=== PATIENT | male | born 1945 | race Caucasian/White ===

== ENCOUNTER 2016-02-09 09:57 | Outpatient (RCR) | payer OTHER ==
[~2016-02-09 09:57] MED LIST: ATIVAN 0.50.5 MG/TAB PO; FLOMAX; FLOMAX 0.40.4 MG/CAP PO; MUCINEX 60600 MG/TA1; PREDNISONE20 MG PO; PROVENTIL0.09 MG/A1 IH; SINGULAIR 110 MG/TAB PO; ZYRTEC 10MG10 MG PO; [UNRECOGNIZED DRUG - REMARK]
== END 2016-05-09 ==
LOC: WSOH
DX: S61.412D Laceration without foreign body of left hand, subsequent encounter (principal)

== ENCOUNTER 2016-05-08 09:51 | Emergency (ER) | payer MEDICARE, OTHER ==
[~2016-05-08] VITALS: Ht 177.8 cm; Wt 86.4 kg
[2016-05-08 09:56] VITALS: BP 131/93; TEMP 99.4
[2016-05-08 10:27] VITALS: PULSE 94
== END 2016-05-08 10:27 | disposition home or self-care (01) ==
LOC: COL.ER 09:51
DX: S61.012A Laceration without foreign body of left thumb without damage to nail, initial encounter (principal); W26.8XXA Contact with other sharp object(s), not elsewhere classified, initial encounter; Y92.009 Unspecified place in unspecified non-institutional (private) residence as the place of occurrence of the external cause

== ENCOUNTER 2016-07-03 20:18 | Observation (INO) | payer MEDICARE, OTHER ==
[~2016-07-03] VITALS: Ht 177.8 cm; Wt 90.0 kg
[2016-07-03] MEDS ORDERED: ASPIRIN 32325 MG/TAB PO (20:24)
[2016-07-03 20:55] LABS: BASO # 0.1 (0.0-0.2); BASO % 0.6 % (0.0-2.0); EOS # 0.2 (0.0-0.7); GRAN % 49.1 % (42.2-75.2); HEMATOCRIT 45.3 % (42.0-52.0); HEMOGLOBIN 15.9 g/dl (13.5-18.0); LYMPH # 3.8 (1.2-3.4); LYMPH % 36.9 % (20.0-51.0); MEAN CELL VOLUME 85 fl (80.0-100.0); MEAN CORPUSCULAR HEMOGLOBIN 30 pg (27.0-31.0); MEAN CORPUSCULAR HGB CONC 35 g/dl (33.0-37.0); MEAN PLATELET VOLUME 9.7 fl (7.4-10.4); MONO # 1.1 (0.1-0.6); MONO % 10.9 % (1.7-9.3); PLATELET COUNT 228 K/mm3 (130-400); RED BLOOD COUNT 5.35 M/mm3 (4.20-5.60); REDCELL DISTRIBUTION WIDTH-CV 12.5 % (11.5-14.5); WHITE BLOOD COUNT 10.2 K/mm3 (4.8-10.8)
[2016-07-03 21:00] LABS: INR 1.1 (0.8-3.0); PROTHROMBIN TIME 11.9 SECONDS (9.7-12.8)
[2016-07-03 21:02] LABS: ADJUSTED CALCIUM 9.1 mg/dL (8.4-10.2); ALBUMIN 4.1 gm/dL (3.5-5.0); BILIRUBIN,TOTAL 0.8 mg/dL (0.0-1.0); CALCIUM 9.2 mg/dL (8.4-10.2); CREATININE, serum 0.96 mg/dL (0.66-1.25); PARTIAL THROMBOPLASTIN TIME 27.9 SECONDS (26.0-37.0); POTASSIUM 3.6 mmol/L (3.4-5.0); TOTAL PROTEIN 7.1 gm/dL (6.4-8.2)
[2016-07-03 21:52] LABS: PH 6 (5-8); SQUAMOUS EPITHELIAL None Seen /hpf; URINE APPEARANCE Cloudy; URINE BACTERIA None Seen /hpf; URINE BILIRUBIN Negative (NEGATIVE); URINE BLOOD 3+ (NEGATIVE); URINE COLOR Yellow; URINE GLUCOSE Negative (NEGATIVE); URINE KETONE Negative (NEGATIVE); URINE RBC >50 /hpf; URINE UROBILINOGEN Negative (NEGATIVE)
[2016-07-04] VITALS (11 sets, daily range): BP systolic 107–139; BP diastolic 41–81; PULSE 56–87; TEMP 97.6–98.3
[2016-07-04] MEDS ORDERED: NORCO 325 MG-51 TAB PO (17:24)
[2016-07-04] MEDS ORDERED: PYRIDIUM 100MG100 MG PO (17:24)
== END 2016-07-04 17:30 | disposition home or self-care (01) ==
LOC: COL.ER 20:18 → SURG 23:14
PROVIDERS: Emergency Medicine
DX: N20.0 Calculus of kidney (principal); N36.9 Urethral disorder, unspecified; N36.2 Urethral caruncle; K31.9 Disease of stomach and duodenum, unspecified; Z87.442 Personal history of urinary calculi
CPT/HCPCS: C1769; C1894; C2617; G0378; J0690; J0696; J1100; J1885; J2405; J2704; J2765; J3010; J7030; J7120; Q9967

== ENCOUNTER 2016-07-08 15:12 | Inpatient (IN) | payer MEDICARE, OTHER ==
[~2016-07-08] VITALS: Ht 177.8 cm; Wt 86.2 kg
[~2016-07-08 15:12] MED LIST changes: +ASPIRIN 32325 MG/TAB PO; +NORCO 325 MG-51 TAB PO; +PYRIDIUM 100MG100 MG PO
[2016-07-28] VITALS (10 sets, daily range): BP systolic 113–142; BP diastolic 64–77; PULSE 70–102; TEMP 98
[2016-07-29 06:23] VITALS: BP 117/71; PULSE 73; TEMP 98.1
[2016-07-29 06:52] LABS: HEMATOCRIT 42.3 % (42.0-52.0); HEMOGLOBIN 14.7 g/dl (13.5-18.0)
[2016-07-29 07:02] LABS: CALCIUM 8.4 mg/dL (8.4-10.2); CREATININE, serum 0.87 mg/dL (0.66-1.25); POTASSIUM 4.2 mmol/L (3.4-5.0)
[2016-07-29 09:30] VITALS: BP 100/73; PULSE 71; TEMP 98.5
[2016-07-29 14:00] VITALS: BP 123/71; PULSE 71
[2016-07-29 18:00] VITALS: BP 142/69; PULSE 70
[2016-07-29 22:51] VITALS: BP 126/68; PULSE 64; TEMP 97.8
[2016-07-30 02:18] VITALS: BP 125/67; PULSE 70; TEMP 98
[2016-07-30 05:57] VITALS: BP 142/82; PULSE 75; TEMP 98
[2016-07-30 10:04] VITALS: BP 128/73; PULSE 77; TEMP 98.3
[2016-07-30 14:09] VITALS: BP 138/76; PULSE 79
== END 2016-07-30 14:57 | disposition home or self-care (01) | DRG 669 ==
LOC: SURG 07-21 09:30 → OR 07-28 10:20 → SURG 07-28 10:20
PROVIDERS: Surgery; Urology
PROC: 0TC68ZZ Extirpation of Matter from Right Ureter, Via Natural or Artificial Opening Endoscopic (ICD-10-PCS; principal; 2016-07-28 12:30)
PROC: 0DB64ZX Excision of Stomach, Percutaneous Endoscopic Approach, Diagnostic (ICD-10-PCS; 2016-07-28 12:30)
PROC: 8E0W4CZ Robotic Assisted Procedure of Trunk Region, Percutaneous Endoscopic Approach (ICD-10-PCS; 2016-07-28 12:30)
PROC: 0VB08ZX Excision of Prostate, Via Natural or Artificial Opening Endoscopic, Diagnostic (ICD-10-PCS; 2016-07-28 12:30)
PROC: 0T768DZ Dilation of Right Ureter with Intraluminal Device, Via Natural or Artificial Opening Endoscopic (ICD-10-PCS; 2016-07-28 12:30)
DX: N20.1 Calculus of ureter (principal); N13.8 Other obstructive and reflux uropathy; N40.1 Benign prostatic hyperplasia with lower urinary tract symptoms; D48.1 Neoplasm of uncertain behavior of connective and other soft tissue; R31.0 Gross hematuria; J45.909 Unspecified asthma, uncomplicated
CPT/HCPCS: A9284; C1713; C1769; C1894; C2617; J0360; J0690; J1100; J1170; J2370; J2405; J2704; J3010; J7042; J7120

== ENCOUNTER 2016-12-09 06:40 | Inpatient (IN) | payer MEDICARE, OTHER ==
[~2016-12-09] VITALS: Ht 177.8 cm; Wt 86.5 kg
[2016-12-09 07:20] LABS: BASO # 0.1 (0.0-0.2); BASO % 0.7 % (0.0-2.0); EOS # 0.2 (0.0-0.7); EOS % 2.5 % (0-4.0); GRAN % 54.7 % (42.2-75.2); HEMATOCRIT 47.7 % (42.0-52.0); HEMOGLOBIN 16.6 g/dl (13.5-18.0); LYMPH # 2.2 (1.2-3.4); LYMPH % 30.2 % (20.0-51.0); MEAN CELL VOLUME 84 fl (80.0-100.0); MEAN CORPUSCULAR HEMOGLOBIN 29 pg (27.0-31.0); MEAN CORPUSCULAR HGB CONC 35 g/dl (33.0-37.0); MEAN PLATELET VOLUME 9.9 fl (7.4-10.4); MONO # 0.8 (0.1-0.6); MONO % 11.3 % (1.7-9.3); PLATELET COUNT 228 K/mm3 (130-400); RED BLOOD COUNT 5.71 M/mm3 (4.20-5.60); REDCELL DISTRIBUTION WIDTH-CV 12.7 % (11.5-14.5); WHITE BLOOD COUNT 7.2 K/mm3 (4.8-10.8)
[2016-12-09 07:32] LABS: ADJUSTED CALCIUM 8.9 mg/dL (8.4-10.2); ALBUMIN 4.1 gm/dL (3.5-5.0); BILIRUBIN,TOTAL 1.1 mg/dL (0.0-1.0); CREATININE, serum 0.78 mg/dL (0.66-1.25); POTASSIUM 3.9 mmol/L (3.4-5.0); TOTAL PROTEIN 7.3 gm/dL (6.4-8.2)
[2016-12-09 07:47] LABS: INR 1.1 (0.8-3.0); PARTIAL THROMBOPLASTIN TIME 27.3 SECONDS (26.0-37.0); PROTHROMBIN TIME 11.7 SECONDS (9.7-12.8)
[2016-12-09 10:39] VITALS: BP 147/80; PULSE 64; TEMP 98
[2016-12-09 13:03] VITALS: BP 135/84; PULSE 61; TEMP 98.2
[2016-12-09 14:51] LABS: HEMATOCRIT 45.6 % (42.0-52.0); HEMOGLOBIN 15.5 g/dl (13.5-18.0)
[2016-12-09 16:17] VITALS: BP 130/77; PULSE 67; TEMP 98.7
[2016-12-09 20:40] VITALS: BP 139/81; PULSE 69; TEMP 97.8
[2016-12-09 22:19] LABS: HEMATOCRIT 44.9 % (42.0-52.0); HEMOGLOBIN 15.3 g/dl (13.5-18.0)
[2016-12-09 23:39] VITALS: BP 142/84; PULSE 62; TEMP 97.4
[2016-12-10] VITALS (9 sets, daily range): BP systolic 104–141; BP diastolic 66–81; PULSE 71–98; TEMP 97.8–98.4
[2016-12-10 08:32] LABS: HEMATOCRIT 43.4 % (42.0-52.0); HEMOGLOBIN 15.4 g/dl (13.5-18.0)
[2016-12-10 14:47] LABS: HEMATOCRIT 44.6 % (42.0-52.0); HEMOGLOBIN 15.2 g/dl (13.5-18.0)
[2016-12-11 03:28] VITALS: BP 128/79; PULSE 68; TEMP 98.3
[2016-12-11 06:54] LABS: HEMOGLOBIN 15.6 g/dl (13.5-18.0)
[2016-12-11 08:38] VITALS: BP 121/72; PULSE 77; TEMP 98.7
== END 2016-12-11 10:43 | disposition home or self-care (01) | DRG 379 ==
LOC: COL.ER 06:40 → MEDICAL 08:21
PROVIDERS: Emergency Medicine; Internal Medicine; Internal Medicine Gastroenterology
PROC: 0DJD8ZZ Inspection of Lower Intestinal Tract, Via Natural or Artificial Opening Endoscopic (ICD-10-PCS; principal; 2016-12-10 15:30)
DX: K57.31 Diverticulosis of large intestine without perforation or abscess with bleeding (principal); Z87.442 Personal history of urinary calculi
CPT/HCPCS: 99222-AI; 99232-AI; 99239; C9113; J2250; J2405; J3010; J7030

== ENCOUNTER 2017-11-29 11:54 | Day surgery (SDC) | payer MEDICARE, OTHER ==
[2017-11-29] VITALS (9 sets, daily range): BP systolic 130–158; BP diastolic 75–100; PULSE 59–71; TEMP 97.5
[~2017-11-29] VITALS: Ht 177.8 cm; Wt 88.0 kg
[2017-11-29] MEDS ORDERED: CIPRO 500MG TA500 MG PO (13:25)
[2017-11-29] MEDS ORDERED: ASPIRIN 32325 MG/TAB PO (13:26)
[2017-11-30] VITALS: BP 130/75; PULSE 84; TEMP 98
[2017-11-30 04:00] VITALS: BP 132/80; PULSE 83; TEMP 98.6
[2017-11-30 08:28] VITALS: BP 118/73; PULSE 85; TEMP 97.6
[2017-11-30 12:50] VITALS: BP 143/83; PULSE 84; TEMP 97.8
[2017-11-30 16:17] VITALS: BP 144/73; PULSE 94; TEMP 97.5
[2017-11-30 22:22] VITALS: BP 144/74; PULSE 80; TEMP 97.8
[2017-12-01 00:26] VITALS: BP 133/78; PULSE 78; TEMP 98.6
[2017-12-01 04:00] VITALS: BP 121/80; PULSE 74; TEMP 97.5
[2017-12-01 08:00] VITALS: BP 150/113; PULSE 95; TEMP 97.8
[2017-12-01 08:18] VITALS: BP 139/70
[2017-12-01 11:26] VITALS: BP 138/76; PULSE 91; TEMP 97.8
[2017-12-01 16:44] VITALS: BP 136/77; PULSE 84; TEMP 98
== END 2017-12-01 18:07 | disposition home or self-care (01) ==
LOC: SDCO 11:54 → SURG 17:34 → SDCO 12-01 18:07
DX: N40.1 Benign prostatic hyperplasia with lower urinary tract symptoms (principal); N13.8 Other obstructive and reflux uropathy; N20.1 Calculus of ureter; N21.0 Calculus in bladder; R93.41 Abnormal radiologic findings on diagnostic imaging of renal pelvis, ureter, or bladder; J45.909 Unspecified asthma, uncomplicated; Z87.442 Personal history of urinary calculi
CPT/HCPCS: OP; C1769; C2617; J0690; J2250; J2704; J7120; Q9967

== ENCOUNTER 2018-03-12 16:45 | Emergency (ER) | payer MEDICARE, OTHER ==
[~2018-03-12] VITALS: Ht 177.8 cm; Wt 88.6 kg
[~2018-03-12 16:45] MED LIST changes: +CIPRO 500MG TA500 MG PO
[2018-03-12 16:49] VITALS: TEMP 98.7
[2018-03-12] MEDS ORDERED: ASPIRIN E.C. 8181 MG PO (16:55)
[2018-03-12 17:18] LABS: BASO # 0.1 (0.0-0.2); BASO % 0.5 % (0.0-2.0); EOS # 0.2 (0.0-0.7); EOS % 2.3 % (0-4.0); GRAN # 4.8 (1.4-6.5); GRAN % 46.9 % (42.2-75.2); HEMATOCRIT 46.7 % (42.0-52.0); LYMPH # 3.9 (1.2-3.4); LYMPH % 37.3 % (20.0-51.0); MEAN CELL VOLUME 84 fl (80.0-100.0); MEAN CORPUSCULAR HEMOGLOBIN 29 pg (27.0-31.0); MEAN CORPUSCULAR HGB CONC 34 g/dl (33.0-37.0); MEAN PLATELET VOLUME 10.2 fl (7.4-10.4); MONO # 1.3 (0.1-0.6); MONO % 12.4 % (1.7-9.3); PLATELET COUNT 259 K/mm3 (130-400); RED BLOOD COUNT 5.57 M/mm3 (4.20-5.60); REDCELL DISTRIBUTION WIDTH-CV 12.8 % (11.5-14.5)
[2018-03-12 17:28] LABS: ALANINE AMINOTRANSFERASE 40 U/L (21-72); ALBUMIN 4.1 gm/dL (3.5-5.0); ALKALINE PHOSPHATASE 55 U/L (50-136); ANION GAP 7 mmol/L (7-16); AST,SGOT 36 U/L (15-37); BILIRUBIN,TOTAL 0.6 mg/dL (0.0-1.0); BLOOD UREA NITROGEN 20 mg/dL (9-20); CALCIUM 9.1 mg/dL (8.4-10.2); CARBON DIOXIDE 25 mmol/L (22-30); CHLORIDE 105 mmol/L (98-107); CREATININE, serum 0.85 mg/dL (0.66-1.25); GLUCOSE 99 mg/dL (74-106); POTASSIUM 3.7 mmol/L (3.4-5.0); SODIUM 137 mmol/L (137-145); TOTAL PROTEIN 7.4 gm/dL (6.4-8.2)
[2018-03-12 17:31] LABS: C-REACTIVE PROTEIN < 0.5 mg/dL (0.0-0.9)
[2018-03-12 19:05] VITALS: BP 148/91; PULSE 74
== END 2018-03-12 19:15 | disposition home or self-care (01) ==
LOC: COL.ER 16:45
PROVIDERS: Emergency Medicine
DX: R51 Headache (principal); Z79.82 Long term (current) use of aspirin
CPT/HCPCS: J1200; J1885; J2765; J3010; J7040

== ENCOUNTER → 2018-11-21 | Outpatient (CLI) | payer MEDICARE, OTHER ==
[~2018-11-21] MED LIST changes: +ASPIRIN E.C. 8181 MG PO
== END ==
LOC: COL.VAS 08:05
DX: I35.1 Nonrheumatic aortic (valve) insufficiency (principal); I51.7 Cardiomegaly